=== PATIENT | male | born 1990 | race African-American/Black ===

== ENCOUNTER 2017-12-15 15:29 | Emergency (ER) | payer OTHER ==
[~2017-12-15] VITALS: Ht 188 cm; Wt 81.6 kg
[~2017-12-15 15:29] MED LIST: CLONAZEPAM1 M2 PO
[2017-12-15 16:15] LABS: ABSOLUTE BASOPHIL COUNT 0 /CUMM (0.0-0.2); ABSOLUTE EOSINOPHIL COUNT 0.1 /CUMM (0.0-0.7); ABSOLUTE LYMPH COUNT 1.6 /CUMM (1.2-3.4); BASOPHIL % 0.4 % (0.0-2.0); EOSINOPHIL % 1.2 % (0-5); GRANULOCYTE % 72.2 % (42.2-75.2); HEMATOCRIT 45.8 % (42-52); MEAN CORPUSCULAR HGB CONC 33.2 G/DL (33.0-37.0); MEAN CORPUSCULAR VOLUME 90.6 FL (80.0-94.0); MEAN PLATELET VOLUME 6.8 FL (7.4-10.4); PLATELET COUNT 350 /CUMM (130-400); RBC DISTRIBUTION WIDTH 13.3 % (11.5-14.5); RED BLOOD CELL CT 5.06 /CUMM (4.70-6.10); WHITE BLOOD CELL COUNT 9.7 /CUMM (4.8-10.8)
--- NOTE | 2017-12-15 19:54 | ED GENERAL ADULT ---
History of Present Illness General Chief Complaint: ETOH/Drug Related Complaint Stated Complaint: ?WITHDRAWL Source: patient Exam Limitations: no limitations Vital Signs & Intake/Output Vital Signs & Intake/Output Vital Signs Date Time Temp Pulse Resp B/P B/P Pulse O2 O2 Flow FiO2 Mean Ox Delivery Rate 12/16 0606 97.6 66 16 137/72 12/16 0532 97.6 66 16 137/72 99 Room Air 12/16 0125 97.9 79 16 123/78 12/16 0125 97.8 79 16 123/78 98 12/15 2159 97.9 64 18 128/64 12/15 2159 97.9 68 16 128/64 98 Room Air 12/15 2125 Room Air 12/15 1555 97.1 92 18 166/92 12/15 1555 97.1 92 18 98 Room Air Room Air ED Intake and Output 12/16 0000 12/15 1200 Intake Total 0 Output Total 0 Balance 0 Intake, Oral 0 Output, Urine 0 Patient 180 lb Weight Weight Reported by Patient Measurement Method Allergies Coded Allergies: No Known Allergies (11/10/17) Reconcile Medications Clonazepam 1 MG TABLET 1 TAB PO BIDP PRN anxiety ten...[id number] Triage Note: PT TO ED "I HAVE BEEN STRESSED OUT AND I'VE BEEN DRINKING ALOT THE LAST MONTH, BUT THE LAST DRINK WAS 14 HOURS AGO TO TRY TO STOP". "I FEEL DEPRESSED, ANXIOUS, AND I WANT REHAB FOR ALCOHOL" PT DENIES SI OR HI. Triage Nurses Notes Reviewed? yes Onset: Gradual Duration: hour(s):, week(s): Timing: recent history Injury Environment: home Severity: moderate Modifying Factors: Improves With: rest. Associated Symptoms: anxiety HPI: 27 yo gentleman h/o alcohol use disorder presents seeking detox. He shares that he drinks 20-30 beers per day. "And lately, I've been so stressed out... My friend... his dad is in the ICU at [facility]... I'm just so nervous." He denies seizure, si/hi/hallucinations. "I need help... I can't do this anymore to my body." (Janis QUEZADA,Gibson Cerrato) Past History Travel History Traveled to [place] past 21 day No Medical History Any Pertinent Medical History? 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 No (Janis QUEZADA,Gibson Cerrato) Review of Systems Review of Systems Constitutional: Reports: no symptoms. EENTM: Reports: no symptoms. Respiratory: Reports: no symptoms. Cardiovascular: Reports: no symptoms. GI: Reports: no symptoms. Genitourinary: Reports: no symptoms. Musculoskeletal: Reports: no symptoms. Skin: Reports: no symptoms. Neurological/Psychological: Reports: no symptoms. Hematologic/Endocrine: Reports: no symptoms. Immunologic/Allergic: Reports: no symptoms. All Other Systems: Reviewed and Negative (Gibson Bruce MD) Physical Exam Physical Exam General Appearance: well developed/nourished, alert, awake, anxious Head: atraumatic, normal appearance Eyes: Bilateral: normal appearance. Ears, Nose, Throat: normal pharynx, normal ENT inspection Neck: normal inspection, supple, full range of motion Respiratory: normal breath sounds, chest non-tender, no respiratory distress, quiet respiration, lungs clear Cardiovascular: regular rate/rhythm Gastrointestinal: normal bowel sounds, soft, non-tender, no organomegaly Back: normal inspection, normal range of motion Extremities: normal inspection, normal capillary refill, normal range of motion, no edema Neurologic/Psych: no motor/sensory deficits, awake, alert, oriented x 3 Skin: intact, normal color, warm/dry Core Measures ACS in differential dx? No CVA/TIA Diagnosis: No Sepsis Present: No Sepsis Focused Exam Completed? No (Janis QUEZADA,Gibson Cerrato) Progress Differential Diagnoses I considered the following diagnoses in my evaluation of the patient: alcoholism vs other. Plan of Care: Orders Procedure Date/time Status Regular Diet 12/16 B Active CASE MANAGEMENT CONSULT 12/15 1958 Active CIWA 12/15 1640 Active URINE DRUG SCREEN FOR ER ONLY 12/15 1601 Active ETHANOL 12/15 1601 Complete COMPREHENSIVE METABOLIC PANEL 12/15 1601 Complete CBC WITHOUT DIFFERENTIAL 12/15 1601 Complete Current Medications Sig/Karthikeyan Start time Last Medication Dose Stop Time Status Admin Ondansetron HCl 4 MG Q4-6 PRN PRN 12/15 2014 UNVr 12/15 (Zofran) 2023 Laboratory Tests 12/15/17 1600: Anion Gap 10, Estimated GFR > 60, BUN/Creatinine Ratio 12.9, Glucose 113 H, Calcium 9.5, Total Bilirubin 1.4 H, AST 65 H, ALT 72, Alkaline Phosphatase 66, Total Protein 8.1, Albumin 4.9, Globulin 3.2, Albumin/Globulin Ratio 1.5, CBC w Diff NO MAN DIFF REQ, RBC 5.06, MCV 90.6, MCH 30.0, MCHC 33.2, RDW 13.3, MPV 6.8 L, Gran % 72.2, Lymphocytes % 16.1 L, Monocytes % 10.1 H, Eosinophils % 1.2, Basophils % 0.4, Absolute Granulocytes 7.0 H, Absolute Lymphocytes 1.6, Absolute Monocytes 1.0 H, Absolute Eosinophils 0.1, Absolute Basophils 0, Serum Alcohol < 10.0 Initial ED EKG: none (Janis QUEZADA,Gibson Cerrato) Comments: Patient CIWA score has gone as high as 12 but then it came down without any benzodiazepines. At this point patient is stable for discharge with follow-up with state approved detox facility. (Villa QEUZADA,Ryan Rankin) Departure Departure Condition: Stable Clinical Impression Primary Impression: Alcoholism Referrals: Patient Has No Primary Care Dr (PCP/Family) Comments pt signed out to dr. driver, 12/16/17, 7am. (Gibson Bruce MD) Departure Disposition: HOME OR SELF CARE Additional Instructions: Follow up with the stated report detox facility. Return if symptoms worsen or for any concerns. Departure Forms: Customer Survey DETOX FACILITIES LIST General Discharge Information (Ryan Driver MD) Critical Care Note Critical Care Note Critical Care Time: non-applicable (Gibson Bruce MD)
[2017-12-16 09:35] VITALS: BP 132/88
== END 2017-12-16 09:42 ==
LOC: ERH 15:29
PROVIDERS: Emergency Medicine
DX: F10.20 Alcohol dependence, uncomplicated (principal); F41.9 Anxiety disorder, unspecified; F17.210 Nicotine dependence, cigarettes, uncomplicated
CPT/HCPCS: 80307; G0480; J3101